=== PATIENT | male | born 1955 | race Caucasian/White ===

== ENCOUNTER 2017-08-14 18:10 | Emergency (ER) | payer OTHER ==
[~2017-08-14] VITALS: Ht 188 cm; Wt 84.4 kg
--- OUTSIDE RECORDS SUMMARY | ~2017-08-14 | XMS | Clinical Summary ---
Demographics + + + | Address | [address] | | | [place] [address] | + + + | Home Phone | | + + + | Preferred Language | Unknown | + + + | Marital Status | | + + + | Mormon Affiliation | Unknown | + + + | Race | White | + + + | Ethnic Group | Not or | + + + Author + + + | Organization | Unknown | + + + | Address | Unknown | + + + | Phone | Unavailable | + + + Care Team Providers + +------+ + | Care Acute Care Occupational Therapist Name | Role | Phone | + +------+ + PP | Unavailable | + +------+ + Source Comments KATY is fully live on both [facility] and [facility]Patient.[facility] Allergies Not on File Current Medications Not on file Active Problems Not on file Social History + +-------+ +--------+------+ | Tobacco Use | Types | Packs/Day | Years | Date | | | | | Used | | + +-------+ +--------+------+ | Never Assessed | | | | | + +-------+ +--------+------+ + + + | Sex Assigned at | Date Recorded | | | | + + + | Not on file | | + + + Plan of Treatment + + + + + | Health Maintenance | Due Date | Last Done | Comments | + + + + + | INFLUENZA VACCINE | | | | | (FLU SHOT) | 8 | | | + + + + + Results Not on filefrom Last 3 Months"
--- OUTSIDE RECORDS SUMMARY | ~2017-08-14 | XMS | Clinical Summary ---
Demographics + + + | Address | [address] | | | [place] [address] | + + + | Home Phone | | + + + | Preferred Language | Unknown | + + + | Marital Status | | + + + | Restorationism Affiliation | Unknown | + + + | Race | Unknown | + + + | Ethnic Group | Unknown | + + + Author + + + | Author | [facility] | | | and [place] | + + + | Organization | [facility] | | | and [place] | + + + | Address | Unknown | + + + | Phone | Unavailable | + + + Care Team Providers + +------+ + | Care Design Inserter Name | Role | Phone | + +------+ + PP | Unavailable | + +------+ + Allergies No Known Allergies Current Medications + + +-------+---------+------+------+-------+ | Prescription | Sig. | Disp. | Refills | Star | End | Statu | | | | | | t | Date | s | | | | | | Date | | | + + +-------+---------+------+------+-------+ | fenofibrate | | | | 12/22 | | Activ | | (LOFIBRA, TRIGLIDE) | | | | 4/20 | | e | | 160 mg tablet | | | | 12 | | | + + +-------+---------+------+------+-------+ | Tuberculin-Allergy | twice weekly | | | 09/ | | Activ | | Syringes (ALLERGY | | | | 4/20 | | e | | SYRINGE | | | | 12 | | | | 1CC/28GX1/2") 28G X | | | | | | | | 1/2" 1 ML MISC | | | | | | | + + +-------+---------+------+------+-------+ | SIMVASTATIN PO | TABS | | | 09/1 | | Activ | | | | | | 4/20 | | e | | | | | | 12 | | | + + +-------+---------+------+------+-------+ | Psyllium ([facility] | | | | 09/1 | | Activ | | FIBER LAXATIVE) 100 | | | | 4/20 | | e | | % POWD | | | | 12 | | | + + +-------+---------+------+------+-------+ | cetirizine (ZYRTEC | | | | 09/1 | | Activ | | ALLERGY) 10 mg | | | | 20 | | e | | tablet | | | | 12 | | | + + +-------+---------+------+------+-------+ | lansoprazole | | | | 09/1 | | Activ | | (PREVACID) [address] | | | | 20 | | e | | capsule | | | | 12 | | | + + +-------+---------+------+------+-------+ | Ingraham-3 Fatty | CAPS | | | 09/1 | | Activ | | Acids (FISH OIL PO) | | | | 4/20 | | e | | | | | | 12 | | | + + +-------+---------+------+------+-------+ | Ibuprofen (ADVIL) | | | | 09/1 | | Activ | | 200 MG CAPS | | | | 4/20 | | e | | | | | | 12 | | | + + +-------+---------+------+------+-------+ Active Problems + + + | Problem | Noted Date | + + + | 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 | | + + + | PROSTATITIS, HX OF | | + + + | CYSTIC HYGROMA OF SCROTUM | | + + + Social History + +-------+ +--------+------+ | Tobacco [...] on file | | + + + Last Filed Vital Signs + + + + | Vital Sign | Reading | Time Taken | + + + + | Blood Pressure | 138/70 | 11/21/2010 0000 PDT | + + + + | Pulse | - | - | + + + + | Temperature | - | - | + + + + | Respiratory Rate | - | - | + + + + | Oxygen Saturation | - | - | + + + + | Inhaled Oxygen | - | - | | Concentration | | | + + + + | Weight | 85.3 kg (188 lb) | 11/21/2010 0000 PDT | + + + + | Height | 188 cm (6' 2") | 05/18/2009 0000 PST | + + + + | Body Mass Index | 24.14 | 11/21/2010 0000 PDT | + + + + Plan of Treatment + + + + + | Health Maintenance | Due Date | Last Done | Comments | + + + + + | Hepatitis C | | | | | Screening | 4 | | | + + + + + | Vaccine: | | | | | Dtap/Tdap/Td (1 - | 3 | | | | Tdap) | | | | + + + + + | COLON CANCER | | | | | SCREENING | 4 | | | | (COLONOSCOPY EVERY | | | | | 10 YEARS 50-75) | | | | + + + + + | Vaccine: Influenza | | | | | (Season Ended) | 8 | | | + + + + + Results Not on filefrom Last 3 Months
--- OUTSIDE RECORDS SUMMARY | ~2017-08-14 | XMS | Clinical Summary ---
Demographics + + + | Address | [address] | | | [place] [address] | + + + | Home Phone | | + + + | Preferred Language | Unknown | + + + | Marital Status | | + + + | Scientology Affiliation | Unknown | + + + | Race | Unknown | + + + | Ethnic Group | Unknown | + + + Author + + + | Author | [facility] | | | and [place] | + + + | Organization | [facility] | | | and [place] | + + + | Address | Unknown | + + + | Phone | Unavailable | + + + Care Team Providers + +------+ + | Care Relationship Specialist Name | Role | Phone | + [...] | | | + + +-------+---------+------+------+-------+ | Kirwin-3 Fatty | CAPS | | | 09/1 [...]
--- OUTSIDE RECORDS SUMMARY | ~2017-08-14 | XMS | Clinical Summary ---
Demographics + + + | Address | [address] | | | [place] [address] | + + + | Home Phone | | + + + | Preferred Language | Unknown | + + + | Marital Status | | + + + | Restorationist Affiliation | Unknown | + + + | Race | White | + + + | Ethnic Group | Not or | + + + Author + + + | Organization | Unknown | + + + | Address | Unknown | + + + | Phone | Unavailable | + + + Care Team Providers + +------+ + | Care Flight Dynamicist Name | Role | Phone | + +------+ + PP | Unavailable | + +------+ + Source Comments KATY is fully live on both [facility] Ambulatory and [facility] InPatient.[facility] Allergies Not on File Current Medications Not [...]
[~2017-08-14 18:10] MED LIST: ADULT LOW DOSE81 MG PO; DAILY VITAMIN1 EAC2 PO; FENOGLIDE40 MG PO; FISH OIL 1,2001 EACH PO; LISINOPRIL40 MG PO; NEXIUM20 MG PO; SIMVASTATIN20 MG PO; VITAMIN D-32000 UNI1 PO; ZANTAC300 MG PO; ZEGERID OTC 201 EACH PO; ZYRTEC10 MG PO
[2017-08-14] MEDS ORDERED: METHYLPREDNISOLO4 MG PO (18:26)
[2017-08-14] MEDS ORDERED: METOPROLOL SUC100 MG PO (18:27)
[2017-08-14] MEDS ORDERED: EPIPEN 2-P0.3 MG/0.3 IM (18:42)
== END 2017-08-14 19:26 | disposition home or self-care (01) ==
LOC: ED 18:10
DX: L27.0 Generalized skin eruption due to drugs and medicaments taken internally (principal); T46.4X5A Adverse effect of angiotensin-converting-enzyme inhibitors, initial encounter; T38.0X5A Adverse effect of glucocorticoids and synthetic analogues, initial encounter; I10 Essential (primary) hypertension; Z88.8 Allergy status to other drugs, medicaments and biological substances; Z79.899 Other long term (current) drug therapy; Z79.82 Long term (current) use of aspirin
CPT/HCPCS: 99282; Q0163

== ENCOUNTER 2021-08-06 07:04 | Emergency (ER) | payer MEDICARE, OTHER ==
[~2021-08-06] VITALS: Ht 188 cm; Wt 84.4 kg
[~2021-08-06 07:04] MED LIST changes: +EPIPEN 2-P0.3 MG/0.3 IM; +METHYLPREDNISOLO4 MG PO; +METOPROLOL SUC100 MG PO
[2021-08-06] MEDS ORDERED: MAGNESIUM500 MG PO (08:03)
[2021-08-06] MEDS ORDERED: FOLTX TABLET1 EAC1 PO (08:04)
[2021-08-06] MEDS ORDERED: FOLIC ACID1 MG PO (08:04)
[2021-08-06] MEDS ORDERED: AMLODIPINE BESYL5 MG PO (08:06)
[2021-08-06] MEDS ORDERED: PROTONIX40 M1 PO (08:07)
== END 2021-08-06 10:10 | disposition home or self-care (01) ==
LOC: ED 07:04
DX: T78.3XXA Angioneurotic edema, initial encounter (principal); I10 Essential (primary) hypertension; Z88.8 Allergy status to other drugs, medicaments and biological substances; Z79.899 Other long term (current) drug therapy
CPT/HCPCS: 86161; 96374; 96375; 99284-25; J1100; J1200